=== PATIENT | male | born 1945 | race Two or more races ===

== ENCOUNTER 2018-05-06 21:30 | Inpatient (IN) | payer MEDICARE, OTHER ==
[~2018-05-06] VITALS: Ht 172.7 cm; Wt 58.1 kg
[2018-05-06] MEDS ORDERED: LORAZEPAM 2 MG/1 ML VIAL IM ONE (21:45)
[2018-05-06] MEDS ORDERED: OLANZAPINE 10 MG VIAL IM ONE ×2 (21:45→21:48)
[2018-05-06] MEDS ORDERED: diphenhydrAMINE 50 MG/1 ML VIAL IM ONE (21:45)
[2018-05-06] MEDS ORDERED: diphenhydrAMINE 50 MG/1 ML VIAL ONE (21:48)
[2018-05-06] MEDS ORDERED: LORAZEPAM 2 MG/1 ML VIAL ONE (21:49)
[2018-05-06 21:51] LABS: BASOPHILS % (AUTO) 0.2 % (0.0-2.0); EOSINOPHILS # (AUTO) 0.1 K/uL (0.0-0.7); EOSINOPHILS % (AUTO) 0.7 % (0.0-7.0); HEMATOCRIT 40.5 % (36.7-47.1); HEMOGLOBIN 13.2 g/dL (12.5-16.3); LYMPHOCYTES # (AUTO) 1.2 K/uL (20.0-40.0); LYMPHOCYTES % (AUTO) 8.4 % (20.5-51.5); MEAN CORPUSCULAR HEMOGLOBIN 30.3 uug (23.8-33.4); MEAN CORPUSCULAR HGB CONC 33 g/dL (32.5-36.3); MEAN CORPUSCULAR VOLUME 93.2 fL (73.0-96.2); MONOCYTES # (AUTO) 0.8 K/uL (2.0-10.0); MONOCYTES % (AUTO) 6.1 % (0.0-11.0); NEUTROPHILS # (AUTO) 11.6 K/uL (1.8-8.9); NEUTROPHILS % (AUTO) 84.6 % (38.5-71.5); PLATELET COUNT (AUTO) 219 K/uL (152-348); RED BLOOD CELL COUNT(AUTO) 4.34 MIL/uL (4.06-5.63); WHITE BLOOD COUNT (AUTO) 13.7 K/uL (3.6-10.2)
[2018-05-06 22:00] LABS: CARBON DIOXIDE 24 mmol/L (21-32); CHLORIDE 104 mmol/L (98-107); CREATININE 1.5 mg/dL (0.6-1.3); GLUCOSE 97 mg/dL (74-106); UREA NITROGEN, BLOOD 28 mg/dL (7-18)
[2018-05-06 22:05] LABS: ALANINE AMINOTRANSFERASE 37 U/L (16-63); ALKALINE PHOSPHATASE 128 U/L (50-136); ASPARTATE AMINOTRANSFERASE 27 U/L (15-37); BILIRUBIN,DIRECT 0.1 mg/dL (0.0-0.2); BILIRUBIN,TOTAL 0.3 mg/dL (0.2-1.0); TOTAL PROTEIN, SERUM 7.3 g/dL (6.4-8.2)
[2018-05-06 22:06] LABS: ACETAMINOPHEN < 2.0 ug/mL (10-30)
[2018-05-06 22:09] LABS: ETHANOL < 3 MG/DL (0-0)
--- NOTE | 2018-05-06 22:31 | NUR ---
CAITIE (PT'S FAMILY FRIEND) [phone]
[2018-05-06] MEDS ORDERED: METO25TA6 PO (22:32)
[2018-05-06] MEDS ORDERED: ACET325T53 PO (22:32)
[2018-05-06] MEDS ORDERED: DOCU100C36 PO (22:32)
[2018-05-06] MEDS ORDERED: APIX5TAB PO (22:32)
[2018-05-06] MEDS ORDERED: LEVO50TA8 PO (22:32)
[2018-05-06] MEDS ORDERED: MULT1TAB73 PO (22:32)
[2018-05-06] MEDS ORDERED: ASPI-605 PO (22:32)
[2018-05-06] MEDS ORDERED: QUET50TA PO ×2 (22:32)
[2018-05-06] MEDS ORDERED: MAGN400O6 PO (22:32)
[2018-05-06] MEDS ORDERED: LORA-258 PO (22:32)
[2018-05-06] MEDS ORDERED: ATOR20TA PO (22:32)
[2018-05-06] MEDS ORDERED: IV NS 1000 ML 1,000 ML IV ONE (22:45)
--- NOTE | 2018-05-06 23:04 | NUR ---
PAGED EPIC PER RAS GOODMAN. AWAITING CALL BACK FROM BRENDA ARMIREZ NP.
--- NOTE | 2018-05-06 23:14 | NUR ---
DR. DURAN TALKING TO BRENDA RAMIREZ NP.
[2018-05-06] MEDS ORDERED: CEFTRIAXONE 1 G VIAL IM SCH (23:15)
[2018-05-06] MEDS ORDERED: LIDOCAINE HCL 1% 20 ML VIAL ONE (23:15)
[2018-05-06] MEDS ORDERED: CEFTRIAXONE 1 G VIAL ONE (23:16)
--- NOTE | 2018-05-06 23:18 | NUR ---
Pt. admitted to [facility] , under care of Dr. HARDIN/BRENDA RAMIREZ ([facility]) Diagnosis: PSYCHOSIS Belongs List completed. MRSA swab done. Report given to Cynthia CHAMBERLAIN
[2018-05-06] MEDS ORDERED: ACETAMINOPHEN 325 MG TABLET PO PRN ×2 (23:45)
[2018-05-07] MEDS ORDERED: MAG HYDROX/AL HYDROX/SIMETH 30 ML LIQUID UDC PO PRN (00:15)
[2018-05-07] MEDS ORDERED: MAGNESIUM HYDROXIDE 30 ML LIQUID UDC PO PRN (00:15)
[2018-05-07] MEDS ORDERED: TEMAZEPAM 7.5 MG CAPSULE PO PRN (00:15)
--- NOTE | 2018-05-07 00:53 | NUR ---
ADMITTED A 72 YEAR OLD MALE GREEK FROM ER AT APPROX. 23;30 UNDER THE CARE OF DR. HARDIN AND PHYSICIAN JAMES. HIS ADMISSION IS 5150 FOR GD AND THE HOLD STARTED AT 05/06/18 @ 18;15. PRIOR TO HIS ADMISSION HE WAS ATTEMPTING TO ELOPE THROUGH OTHER PATIENTS ROOM AND BROKE A WINDOW WITH HIS FIST. HE IS UNABLE TO DESCRIBE A PLAN OF SELF CARE. IM ZYPREXA , BENADRYL, AND ATIVAN HAD BEEN GIVEN AT THE ER FOR AGITATION AND BEING COMBATIVE. ON THE UNIT HE COULD NOT BE INTERVIEWED SINCE HE WAS SEDATED FROM ER. HE IS SAID TO SPEAK FARSI WITH MINIMAL WOLOF. HIS V/S WERE FF. BP 110/85,T.97. 4 P.60, AN 02 SAT 90%. HE ALSO HAS A PACEMAKER INSERTION ON THE RIGHT SIDE OF CHEST AND SOME ABRASION ON LEFT LEG.
--- NOTE | 2018-05-07 06:59 | NUR ---
NEWLY ADMITTED PATIENT. SLEPT WELL FOR APPROX 6 HRS GOT UP AND WAS AGITATED AND CONFUSED. HAS HAD A SHOWER AND WILL CONTINUE TO MONITOR.
[2018-05-07 07:30] VITALS: BP 122/79
[2018-05-07] MEDS ORDERED: Medication Not On Formulary EA (Multivitamins (Multivitamin) 1 EACH) PO SCH (09:00)
[2018-05-07] MEDS: ASPIRIN EC 81 MG TABLET.DR PO SCH (09:01)
[2018-05-07] MEDS: MULTIVITAMINS,THERAPEUTIC TABLET PO SCH (09:02)
[2018-05-07] MEDS: METOPROLOL TARTRATE 25 MG TABLET PO SCH ×2 (09:02→20:10)
[2018-05-07] MEDS: SULFAMETH/TRIMETH 800/160 MG TABLET PO SCH ×2 (09:02→20:10)
[2018-05-07] MEDS: DOCUSATE SODIUM 100 MG CAPSULE PO SCH (09:02)
[2018-05-07] MEDS: LEVOTHYROXINE SODIUM 50 MCG TABLET PO SCH (09:02)
[2018-05-07] MEDS: APIXABAN 5 MG TABLET PO SCH ×2 (09:44→17:16)
[2018-05-07] MEDS: LORAZEPAM 0.5 MG TABLET PO PRN ×2 (09:47→18:35)
--- NOTE | 2018-05-07 14:32 | NUR ---
Initial Discharge Instructions: Patient has been residing at [facility] since April 28, 2018 [[address] [place] [address]; [place] Spoke with patient's , Kaylyn ([phone]) and patient's friend, Rolanda ([phone]) who report they would like the patient to return to the SNF when ready for discharge. SW will continue to collaborate with pt, family, and MD regarding most appropriate discharge disposition for the patient. SW will form a safe and proper discharge plan.
[2018-05-07 15:07] VITALS: BP 106/53
[2018-05-07] MEDS: BENZTROPINE MESYLATE 0.5 MG TABLET PO SCH (17:16)
[2018-05-07] MEDS: risperiDONE-M 0.5 MG TAB.RAPDIS PO SCH (17:16)
[2018-05-07] MEDS ORDERED: OLANZAPINE 10 MG VIAL IM ONE (19:30)
--- NOTE | 2018-05-07 19:35 | NUR ---
PATIENT WAS NOTED PACING THE HALLWAY, STANDING BY THE DOUBLE DOOR IN MAIN HALLWAY, SHAKING AND TRYING TO OPEN THE THE DOUBLE DOOR, ATTEMPTING TO LEAVE FACILITY (AWOL), YELLING, AND SCREAMING. PATIENT CONTINUE ON 1:1 SUPERVISION FOR AWOL RISK, MULTIPLE REDIRECTION GIVEN; HOWEVER, INEFFECTIVE. DR. HARDIN WAS NOTIFY AND NEW ORDER OBTAINED TO ADMINISTER ZYPREXA 5MG IM STAT ONE TIME ORDER. ORDER NOTED, AWAITING FOR PHARMACY VERIFICATION. WILL CONTINUE TO MONITOR.
--- NOTE | 2018-05-07 20:00 | NUR ---
remains agitated, even after IM injection. was intrusive with peers and staff. difficult to redirect. continues to yell intermittently. assisted to the bathroom. fluids given. gait appears slightly unsteady; currently up in danial chair, for safety. sitter remains at side, at all times.
[2018-05-07] MEDS: ATORVASTATIN 20 MG TABLET PO SCH (20:09)
[2018-05-07 20:59] VITALS: BP 143/90
[2018-05-07] MEDS ORDERED: MAGNESIUM HYDROXIDE 30 ML LIQUID UDC PO SCH (21:00)
[2018-05-07] MEDS ORDERED: HALOPERIDOL LACTATE 5 MG/1 ML VIAL IM ONE (21:15)
[2018-05-07] MEDS ORDERED: diphenhydrAMINE 50 MG/1 ML VIAL IM ONE (21:30)
[2018-05-07] MEDS ORDERED: LORAZEPAM 2 MG/1 ML VIAL IM ONE (21:30)
--- NOTE | 2018-05-07 21:55 | NUR ---
PATIENT CONTINUER PACING THE HALLWAY, CONTINUE STANDING BY THE DOUBLE DOOR IN MAIN HALLWAY, SHAKING THE DOOR AND TRYING TO OPEN THE THE DOUBLE DOOR, CONTINUE ATTEMPTING TO LEAVE FACILITY (AWOL), YELLING, AND SCREAMING. PT IS UNABLE TO BE REDIRECTED. PATIENT CONTINUE ON 1:1 SUPERVISION, MULTIPLE REDIRECTION GIVEN; HOWEVER, INEFFECTIVE. DR. HARDIN WAS NOTIFY AND NEW ORDER OBTAINED TO ADMINISTER HALDOL 5MG IM, BENADRYL 25MG IM AND ATIVAN 1MG IM STAT ONE TIME ORDER. ORDER NOTED, AWAITING FOR PHARMACY VERIFICATION. WILL CONTINUE TO MONITOR CLOSELY.
--- NOTE | 2018-05-07 22:30 | NUR ---
remains agitated, even after second injection. remains in danial chair, for safety.
[2018-05-07 22:44] LABS: *BILIRUBIN,URIN NEGATIVE (NEGATIVE); *BLOOD, URINE NEGATIVE (NEGATIVE); *CLARITY,URINE CLEAR (CLEAR); *COLOR,URINE YELLOW (YELLOW); *KETONES,URINE NEGATIVE (NEGATIVE); *PROTEIN,URINE NEGATIVE (NEGATIVE); *UROBILINOGEN,URINE 0.2 E.U./dl (NORMAL); LEUKOCYTE ESTERASE ,URINE NEGATIVE (NEGATIVE); NITRITE, URINE NEGATIVE (NEGATIVE); UGLUCOSE NEGATIVE (NEGATIVE)
[2018-05-07 22:51] LABS: MUCUS,URINE FEW /LPF (0-FEW); RBC,URINE 0-3 /HPF (0-3); SQUAMOUS EPITHELIAL CELL,UR FEW /HPF (NONE SEEN); WBC,URINE 0-3 /HPF (0-3)
[2018-05-07 22:56] LABS: *AMPHETAMINE, URINE NEGATIVE (NEGATIVE); *BARBITURATE, URINE NEGATIVE (NEGATIVE); *CANNABINOID, URINE NEGATIVE (NEGATIVE); *COCCAINE, URINE NEGATIVE (NEGATIVE); *OPIATE, URINE NEGATIVE (NEGATIVE); *PHENCYCLIDINE SCREEN,URINE NEGATIVE (NEGATIVE)
[2018-05-07 23:03] LABS: *CREATININE,URINE 93.9 mg/dL (30-125); *URINE TOTAL PROTEIN RANDOM 15.9 mg/dL (<150/24HR)
--- NOTE | 2018-05-08 02:25 | NUR ---
remains restless, and agitated. sitter remains at side. will continue to monitor closely.
--- NOTE | 2018-05-08 06:00 | NUR ---
slept 1 hour, total. remains restless and labile. currently pacing ther hallway, talking to self. sitter remains at side. will continue to monitor closely.
[2018-05-08] MEDS: LEVOTHYROXINE SODIUM 50 MCG TABLET PO SCH (06:16)
[2018-05-08 07:30] VITALS: BP 149/88
[2018-05-08] MEDS ORDERED: LORAZEPAM 2 MG/1 ML VIAL IM ONE ×2 (07:30→21:20)
[2018-05-08] MEDS ORDERED: HALOPERIDOL LACTATE 5 MG/1 ML VIAL IM ONE ×2 (07:30→21:20)
[2018-05-08] MEDS ORDERED: BENZTROPINE MESYLATE 2 MG/2 ML AMPUL IM ONE ×2 (07:45→21:20)
[2018-05-08] MEDS: risperiDONE-M 0.5 MG TAB.RAPDIS PO SCH ×4 (08:00→18:00)
[2018-05-08] MEDS: DOCUSATE SODIUM 100 MG CAPSULE PO SCH ×2 (08:41→18:09)
[2018-05-08] MEDS: BENZTROPINE MESYLATE 0.5 MG TABLET PO SCH (08:41)
[2018-05-08] MEDS: ASPIRIN EC 81 MG TABLET.DR PO SCH (08:41)
[2018-05-08] MEDS: SULFAMETH/TRIMETH 800/160 MG TABLET PO SCH ×2 (08:42→20:33)
[2018-05-08] MEDS: METOPROLOL TARTRATE 25 MG TABLET PO SCH ×2 (08:42→20:34)
[2018-05-08] MEDS: APIXABAN 5 MG TABLET PO SCH ×4 (08:42→18:04)
[2018-05-08] MEDS: SERTRALINE HCL 50 MG TABLET PO SCH (08:43)
[2018-05-08] MEDS: MULTIVITAMINS,THERAPEUTIC TABLET PO SCH (08:43)
[2018-05-08] MEDS ORDERED: BENZTROPINE MESYLATE 2 MG/2 ML AMPUL IM SCH (09:00)
[2018-05-08] MEDS ORDERED: TEMAZEPAM 7.5 MG CAPSULE PO PRN (11:00)
[2018-05-08] MEDS: BENZTROPINE MESYLATE 1 MG TABLET PO SCH ×4 (13:00→18:04)
[2018-05-08] MEDS: LORAZEPAM 0.5 MG TABLET PO SCH ×3 (13:00→18:00)
[2018-05-08] MEDS: VALPROIC ACID 250 MG/5 ML LIQUID UDC PO SCH ×4 (13:00→18:04)
[2018-05-08] MEDS ORDERED: BENZTROPINE MESYLATE 0.5 MG TABLET PO SCH (13:00)
[2018-05-08 15:51] VITALS: BP 105/57
[2018-05-08] MEDS ORDERED: BISACODYL 10 MG SUPP.RECT RC PRN (18:30)
[2018-05-08] MEDS: ATORVASTATIN 20 MG TABLET PO SCH (20:33)
[2018-05-08] MEDS: TEMAZEPAM 15 MG CAPSULE PO PRN (20:33)
[2018-05-08 21:39] VITALS: BP 140/69
--- NOTE | 2018-05-08 23:00 | NUR ---
IM Administration Note: Pt became increasingly agitated throughout the shift, defecated on himself, and was resistant to let staff clean him. Pt had to be held by 2 staff for less than 5 minutes in order to change and clean him. Pt was placed in a danial chair for safety, but then slid out from underneath, and grabbed another chair, attempting to throw it at his sitter. Pt postured aggressively toward staff and attempted to strike out. Pt refused PO medication and was unable to accept verbal redirection and de-escalation attempts. Dr Garsia notifies of Pt's behavior and Haldol 5mg, Ativan 1mg, and Cogentin 1mg IM ordered. Security called and present with 3 other staff for IM administration to (B) deltoids. Hands placed on patient for 1 minute for safety during medication administration. VS 140/36, HR 82, O2 sat 97%RA, in no acute physical distress. Pt offered snack and water. Pt now resting comfortably in bed with 1:1 present. All needs attended to, will continue to monitor.
[2018-05-09] MEDS: LORAZEPAM 1 MG TABLET PO PRN ×3 (03:38→21:16)
--- NOTE | 2018-05-09 03:38 | NUR ---
pt slept a few hours, before he became agitated, and climbed out of bed. he was placed in the danial chair, for safety, after he defecated on the floor. he has been escalating over the last hour. attempting to climb out of the chair, attempting to strike staff when redirected. PRN po ativan, was given with much encouragement. sitter remains at side. will continue to monitor closely.
--- NOTE | 2018-05-09 04:30 | NUR ---
appears calmer, now. remains up in danial chair. sitter at side.
--- NOTE | 2018-05-09 06:00 | NUR ---
slept 3 hours total. remains calm. no distress noted.
[2018-05-09] MEDS: LEVOTHYROXINE SODIUM 50 MCG TABLET PO SCH (06:33)
[2018-05-09 07:30] VITALS: BP 106/42
--- NOTE | 2018-05-09 07:30 | NUR ---
oob to chair with sitter, prn getting agitated but manageable. able to be feed with breakfast in dining room. appetite fair.
[2018-05-09] MEDS: DOCUSATE SODIUM 100 MG CAPSULE PO SCH (08:04)
[2018-05-09] MEDS: ASPIRIN EC 81 MG TABLET.DR PO SCH (08:04)
[2018-05-09] MEDS: LORAZEPAM 0.5 MG TABLET PO SCH ×3 (08:04→18:32)
[2018-05-09] MEDS: MULTIVITAMINS,THERAPEUTIC TABLET PO SCH (08:04)
[2018-05-09] MEDS: SULFAMETH/TRIMETH 800/160 MG TABLET PO SCH (08:04)
[2018-05-09] MEDS: risperiDONE-M 0.5 MG TAB.RAPDIS PO SCH ×3 (08:05→18:34)
[2018-05-09] MEDS: SERTRALINE HCL 50 MG TABLET PO SCH (08:05)
[2018-05-09] MEDS: METOPROLOL TARTRATE 25 MG TABLET PO SCH ×2 (08:10→21:15)
[2018-05-09] MEDS: VALPROIC ACID 250 MG/5 ML LIQUID UDC PO SCH ×3 (08:19→16:44)
[2018-05-09] MEDS: BENZTROPINE MESYLATE 1 MG TABLET PO SCH ×3 (08:20→16:45)
--- NOTE | 2018-05-09 08:21 | NUR ---
med given as ordered for elvia.
--- NOTE | 2018-05-09 09:39 | NUR ---
med x 1 for increased anxiety
--- NOTE | 2018-05-09 11:00 | NUR ---
patient sleeping comfortably after ativan given. no distress noted. continued sitter at bedside
--- NOTE | 2018-05-09 13:17 | NUR ---
called, appreciative of care. patient awake now., med given as ordered
[2018-05-09 13:51] LABS: BASOPHILS % (AUTO) 0.5 % (0.0-2.0); EOSINOPHILS # (AUTO) 0.1 K/uL (0.0-0.7); EOSINOPHILS % (AUTO) 0.9 % (0.0-7.0); HEMOGLOBIN 12.3 g/dL (12.5-16.3); LYMPHOCYTES # (AUTO) 1.4 K/uL (20.0-40.0); LYMPHOCYTES % (AUTO) 15.2 % (20.5-51.5); MEAN CORPUSCULAR HEMOGLOBIN 30.9 uug (23.8-33.4); MEAN CORPUSCULAR HGB CONC 33 g/dL (32.5-36.3); MEAN CORPUSCULAR VOLUME 92.9 fL (73.0-96.2); MONOCYTES # (AUTO) 0.6 K/uL (2.0-10.0); MONOCYTES % (AUTO) 7.2 % (0.0-11.0); NEUTROPHILS # (AUTO) 6.8 K/uL (1.8-8.9); NEUTROPHILS % (AUTO) 76.2 % (38.5-71.5); PLATELET COUNT (AUTO) 187 K/uL (152-348); RED BLOOD CELL COUNT(AUTO) 3.99 MIL/uL (4.06-5.63)
[2018-05-09 13:58] LABS: ALANINE AMINOTRANSFERASE 50 U/L (16-63); ALKALINE PHOSPHATASE 116 U/L (50-136); ASPARTATE AMINOTRANSFERASE 100 U/L (15-37); BILIRUBIN,TOTAL 0.6 mg/dL (0.2-1.0); CARBON DIOXIDE 29 mmol/L (21-32); CHLORIDE 104 mmol/L (98-107); CREATININE 1.4 mg/dL (0.6-1.3); GLUCOSE 89 mg/dL (74-106); MAGNESIUM 1.9 mg/dL (1.8-2.4); PHOSPHOROUS 3.7 mg/dL (2.5-4.9); TOTAL PROTEIN, SERUM 6.7 g/dL (6.4-8.2); UREA NITROGEN, BLOOD 26 mg/dL (7-18)
[2018-05-09 15:25] VITALS: BP 101/63
[2018-05-09] MEDS: APIXABAN 5 MG TABLET PO SCH (16:46)
[2018-05-09 20:11] VITALS: BP 121/67
[2018-05-09] MEDS: ATORVASTATIN 20 MG TABLET PO SCH (21:15)
--- NOTE | 2018-05-09 21:15 | NUR ---
lYING IN ELENA CHAIR 1-1 AT PT SIDE. PT continues to be confused and agiatated. Given hs meds with ativan.
--- NOTE | 2018-05-09 22:50 | NUR ---
Less Agiatated remains confused and restless. 1-1 remains at his side in Shilpa Chair.
--- NOTE | 2018-05-10 03:24 | NUR ---
Remains awake and restless refusing po meds. 1-1 at his side.
--- NOTE | 2018-05-10 05:51 | NUR ---
Awake remains Lying in Shilpa Chair 1-1 @ bedside. Refusing po meds. No sleep throughout the shift.
[2018-05-10] MEDS: LEVOTHYROXINE SODIUM 50 MCG TABLET PO SCH (06:18)
[2018-05-10 06:49] LABS: BASOPHILS # (AUTO) 0.1 K/uL (0.0-8.0); BASOPHILS % (AUTO) 0.6 % (0.0-2.0); EOSINOPHILS # (AUTO) 0.1 K/uL (0.0-0.7); EOSINOPHILS % (AUTO) 0.7 % (0.0-7.0); HEMATOCRIT 39.8 % (36.7-47.1); HEMOGLOBIN 13.4 g/dL (12.5-16.3); LYMPHOCYTES # (AUTO) 1.1 K/uL (20.0-40.0); LYMPHOCYTES % (AUTO) 10.8 % (20.5-51.5); MEAN CORPUSCULAR HEMOGLOBIN 31.8 uug (23.8-33.4); MEAN CORPUSCULAR HGB CONC 34 g/dL (32.5-36.3); MEAN CORPUSCULAR VOLUME 94.4 fL (73.0-96.2); MONOCYTES # (AUTO) 0.8 K/uL (2.0-10.0); MONOCYTES % (AUTO) 8.1 % (0.0-11.0); NEUTROPHILS # (AUTO) 7.8 K/uL (1.8-8.9); NEUTROPHILS % (AUTO) 79.8 % (38.5-71.5); PLATELET COUNT (AUTO) 231 K/uL (152-348); RED BLOOD CELL COUNT(AUTO) 4.22 MIL/uL (4.06-5.63); WHITE BLOOD COUNT (AUTO) 9.8 K/uL (3.6-10.2)
[2018-05-10 07:08] LABS: CARBON DIOXIDE 29 mmol/L (21-32); CHLORIDE 102 mmol/L (98-107); CREATININE 1.6 mg/dL (0.6-1.3); GLUCOSE 109 mg/dL (74-106); POTASSIUM 4.1 mmol/L (3.5-5.1); UREA NITROGEN, BLOOD 24 mg/dL (7-18)
[2018-05-10 07:30] VITALS: BP 135/76
--- NOTE | 2018-05-10 07:30 | NUR ---
Rec'd pt in bed asleep. Pt with 1:1 sitter at bedside for safety secondary pt is high risk for falls due to severely impaired cognitive status. Pt on 14 day hold up 05/23 for GD. Pt on observation for exit seeking and breaking window at his previous facility. Pt still with behavior of exit seeking, noted trying to push doors open in hallway. Still with confusion. All safety precautions in place at this time. Will monitor.
[2018-05-10] MEDS: VALPROIC ACID 250 MG/5 ML LIQUID UDC PO SCH ×4 (08:04→17:00)
[2018-05-10] MEDS: LORAZEPAM 0.5 MG TABLET PO SCH ×4 (08:04→18:00)
[2018-05-10] MEDS: ASPIRIN EC 81 MG TABLET.DR PO SCH (08:04)
[2018-05-10] MEDS: METOPROLOL TARTRATE 25 MG TABLET PO SCH ×2 (08:04→21:43)
[2018-05-10] MEDS: SERTRALINE HCL 50 MG TABLET PO SCH (08:04)
[2018-05-10] MEDS: MULTIVITAMINS,THERAPEUTIC TABLET PO SCH (08:04)
[2018-05-10] MEDS: risperiDONE-M 0.5 MG TAB.RAPDIS PO SCH ×4 (08:05→18:00)
[2018-05-10] MEDS: DOCUSATE SODIUM 100 MG CAPSULE PO SCH (08:05)
[2018-05-10] MEDS: BENZTROPINE MESYLATE 1 MG TABLET PO SCH ×4 (08:05→17:59)
[2018-05-10] MEDS: APIXABAN 5 MG TABLET PO SCH ×3 (09:59→17:59)
[2018-05-10] MEDS ORDERED: IBUPROFEN 400 MG TABLET PO PRN (18:15)
--- NOTE | 2018-05-10 18:35 | NUR ---
Noted pt with swelling and skin discoloration to left ankle. Pt denies pain to site. Pt ambulating all day in the hallway without difficulty noted. No facial grimacing or s/s of discomfort to left foot when putting pressure on it while ambulating. Skin intact. No recent injury to site. Pt seen and examined by Vannesa Coates NP with new order for x-ray to left ankle today and labs in am. Dtr at bedside and aware.
[2018-05-10 20:36] VITALS: BP 143/57
[2018-05-10] MEDS: ATORVASTATIN 20 MG TABLET PO SCH (21:43)
[2018-05-10] MEDS: TEMAZEPAM 15 MG CAPSULE PO PRN (21:44)
--- NOTE | 2018-05-10 23:17 | NUR ---
Spit bedtime meds on the floor. 2nd tab of PRN Restoril taken from pyxis and administered per MD order; pt took it this time. Asleep at this time with 1:1 at bedside. No s/s of distress noted.
--- NOTE | 2018-05-11 06:10 | NUR ---
Refused 7AM meds
[2018-05-11] MEDS: LEVOTHYROXINE SODIUM 50 MCG TABLET PO SCH (06:14)
[2018-05-11 06:37] LABS: BASOPHILS % (AUTO) 0.5 % (0.0-2.0); EOSINOPHILS # (AUTO) 0.2 K/uL (0.0-0.7); EOSINOPHILS % (AUTO) 2.3 % (0.0-7.0); HEMATOCRIT 38.5 % (36.7-47.1); HEMOGLOBIN 12.9 g/dL (12.5-16.3); LYMPHOCYTES # (AUTO) 1.7 K/uL (20.0-40.0); LYMPHOCYTES % (AUTO) 20.1 % (20.5-51.5); MEAN CORPUSCULAR HEMOGLOBIN 31.6 uug (23.8-33.4); MEAN CORPUSCULAR HGB CONC 33 g/dL (32.5-36.3); MEAN CORPUSCULAR VOLUME 94.5 fL (73.0-96.2); MONOCYTES # (AUTO) 0.9 K/uL (2.0-10.0); MONOCYTES % (AUTO) 10.5 % (0.0-11.0); NEUTROPHILS # (AUTO) 5.7 K/uL (1.8-8.9); NEUTROPHILS % (AUTO) 66.6 % (38.5-71.5); PLATELET COUNT (AUTO) 217 K/uL (152-348); RED BLOOD CELL COUNT(AUTO) 4.07 MIL/uL (4.06-5.63); WHITE BLOOD COUNT (AUTO) 8.6 K/uL (3.6-10.2)
[2018-05-11 06:44] LABS: CARBON DIOXIDE 25 mmol/L (21-32); CHLORIDE 106 mmol/L (98-107); CREATININE 1.5 mg/dL (0.6-1.3); GLUCOSE 87 mg/dL (74-106); POTASSIUM 4.3 mmol/L (3.5-5.1); UREA NITROGEN, BLOOD 28 mg/dL (7-18)
[2018-05-11 07:30] VITALS: BP 120/66
[2018-05-11] MEDS: LORAZEPAM 1 MG TABLET PO PRN ×2 (07:37→08:17)
[2018-05-11] MEDS: LORAZEPAM 0.5 MG TABLET PO SCH ×3 (08:00→18:00)
[2018-05-11] MEDS: risperiDONE-M 0.5 MG TAB.RAPDIS PO SCH ×3 (08:00→18:00)
[2018-05-11] MEDS: VALPROIC ACID 250 MG/5 ML LIQUID UDC PO SCH ×3 (08:00→16:45)
--- NOTE | 2018-05-11 08:10 | NUR ---
GPS: Nursing Notes: Severe Agitation: patient is awake and responding to his name, impaired judgment, confused, disorganized, overly disruptive by constantly shouting, screaming, wandering around the unit, getting into other patient's room, unable to be redirected, restless behavior, refusing his medications, poor anger management, pushing staff away, paged Dr. Garsia, continue to monitor for safety, continue with treatment plan.
[2018-05-11] MEDS ORDERED: HALOPERIDOL LACTATE 5 MG/1 ML VIAL IM ONE (08:15)
[2018-05-11] MEDS ORDERED: diphenhydrAMINE 50 MG/1 ML VIAL IM ONE (08:15)
[2018-05-11] MEDS ORDERED: LORAZEPAM 2 MG/1 ML VIAL IM ONE (08:15)
--- NOTE | 2018-05-11 08:30 | NUR ---
GPS: Nursing Notes: Chemical Restraint: patient continue to be labile, unpredictable behavior, resistant with nursing care, poor impulse control, poor anger management, overly disruptive by constantly shouting, impaired judgment, restless behavior, unable to follow staff directions, pushing staff away, Dr. Garsia called and ordered: Haldol 10mg IM, Ativan 2mg IM and Benadryl 25mg IM X1 STAT, B/P=120/66, R=18, continue with treatment plan.
[2018-05-11] MEDS: BENZTROPINE MESYLATE 1 MG TABLET PO SCH ×3 (08:31→16:45)
[2018-05-11] MEDS: METOPROLOL TARTRATE 25 MG TABLET PO SCH ×2 (08:31→21:00)
[2018-05-11] MEDS: DOCUSATE SODIUM 100 MG CAPSULE PO SCH (08:31)
[2018-05-11] MEDS: APIXABAN 5 MG TABLET PO SCH ×3 (08:31→16:46)
[2018-05-11] MEDS: ASPIRIN EC 81 MG TABLET.DR PO SCH (08:31)
[2018-05-11] MEDS: MULTIVITAMINS,THERAPEUTIC TABLET PO SCH (08:32)
[2018-05-11] MEDS: SERTRALINE HCL 50 MG TABLET PO SCH ×2 (08:32→13:30)
--- NOTE | 2018-05-11 09:00 | NUR ---
GPS: Nursing Notes: Reassessment of Chemical Restraint: Patient is calmed, confused, disoriented, cooperative with nursing care, medication IM was effective, R=18, continue with 1:1 sitter for safety, continue with treatment plan.
--- NOTE | 2018-05-11 14:00 | NUR ---
Firearms Report: Heeler completed and submitted [employer] Firearms Report on 05/11/18 for [address] Disability certification.
[2018-05-11 17:21] VITALS: BP 102/60
[2018-05-11 20:04] VITALS: BP 103/54
[2018-05-11] MEDS: ATORVASTATIN 20 MG TABLET PO SCH (21:00)
--- NOTE | 2018-05-12 02:35 | NUR ---
Pt BECOMING RESTLESS AND ANXIOUS IN BED, PLACED IN ELENA-CHAIR WITH SITTER AT SIDE AT ALL TIMES. Pt UNABLE TO SLEEP, CONSTANTLY RAMBLING AND MAKING MUMBLING NOISES, ATTEMPTED TO ADMINISTER ATIVAN 1 MG PO PRN FOR RESTLESSNESS/AGITATION, Pt SPIT OUT ATIVAN DURING ADMINISTRATION. NURSE WASTED MEDICATION WITH ANOTHER NURSE WITNESS. Pt IS STILL RESTLESS IN ELENA-CHAIR, UNABLE TO SLEEP. NO AGGRESSIVE BEHAVIOR NOTED. WILL CONTINUE TO MONITOR Pt BEHAVIOR CLOSELY THROUGHOUT SHIFT. IF Pt BEHAVIOR WORSENS AND BECOMES DIFFICULT TO HANDLE BY NURSING STAFF, WILL NOTIFY ON-CALL PSYCHIATRIST FOR ANY FURTHER ORDERS.
[2018-05-12] MEDS: LEVOTHYROXINE SODIUM 50 MCG TABLET PO SCH (06:11)
[2018-05-12] MEDS: LORAZEPAM 1 MG TABLET PO PRN ×2 (07:28→08:16)
[2018-05-12 07:30] VITALS: BP 126/82
[2018-05-12] MEDS: LORAZEPAM 0.5 MG TABLET PO SCH ×3 (08:00→17:15)
[2018-05-12] MEDS: VALPROIC ACID 250 MG/5 ML LIQUID UDC PO SCH ×3 (08:00→16:00)
[2018-05-12] MEDS: risperiDONE-M 0.5 MG TAB.RAPDIS PO SCH ×3 (08:00→17:15)
[2018-05-12] MEDS: BENZTROPINE MESYLATE 1 MG TABLET PO SCH ×3 (08:17→16:17)
[2018-05-12] MEDS: DOCUSATE SODIUM 100 MG CAPSULE PO SCH (08:17)
[2018-05-12] MEDS: ASPIRIN EC 81 MG TABLET.DR PO SCH (08:18)
[2018-05-12] MEDS: APIXABAN 5 MG TABLET PO SCH ×2 (08:18→16:17)
[2018-05-12] MEDS: METOPROLOL TARTRATE 25 MG TABLET PO SCH ×2 (08:18→21:00)
[2018-05-12] MEDS: MULTIVITAMINS,THERAPEUTIC TABLET PO SCH (08:19)
[2018-05-12] MEDS: SERTRALINE HCL 50 MG TABLET PO SCH ×2 (08:19→12:08)
--- NOTE | 2018-05-12 08:55 | NUR ---
GPS.RN- patient anxious restless intrusive, frequently attempting to AWOL unable to be redirected, behavior escalating this morning, patient refusing medications, confused and disoriented, judgement and insight impaired, wondering into rooms and nursing stations difficult to redirect. Dr Garsia notified, chemical restraint ordered. Haldol 10mg IM once, Ativan 2mg IM once and Benadryl 25mg IM once. orders read back.
[2018-05-12] MEDS ORDERED: HALOPERIDOL LACTATE 5 MG/1 ML VIAL IM ONE (09:00)
[2018-05-12] MEDS ORDERED: diphenhydrAMINE 50 MG/1 ML VIAL IM ONE (09:00)
[2018-05-12] MEDS ORDERED: LORAZEPAM 2 MG/1 ML VIAL IM ONE (09:00)
--- NOTE | 2018-05-12 09:30 | NUR ---
GPS/RN- patient calmer at this time, sitting up in gerichair with sitter at side for safety, chemical restraint effective continue to monitor no distress noted
[2018-05-12 15:52] VITALS: BP 111/67
--- NOTE | 2018-05-12 16:24 | NUR ---
GPS/RN-SITTER JUSTIFICATION patient confused disoriented, incoherently, frequently wonders, anxious and restless today, pushing on exit doors constantly,impaired judgement and insight, continue with sitter.
--- NOTE | 2018-05-12 16:49 | NUR ---
GPS/RN- Preeti smith faxed to court. court closed, nursing to follow up tomorrow to verify fax received.
--- NOTE | 2018-05-12 19:30 | NUR ---
RECEIVED PATIENT IN THE HALLWAY, HE CONTINUE ON 1:1 SUPERVISION FOR AWOL RISK. HE IS NOTED A/O X 1. HE DOES NOT SPEAK KU[place] (ARMINIAN ONLY). PATIENT NOTED PACING THE HALLWAY, HYPERVERBAL IN NO DISTRESS. HE IS ABLE TO AMBULATE WITH STEADY GAIT. PT NOTED WITH BLUNTED AFFECT, LOW MOOD, CONFUSED UNABLE TO MAKE EYE CONTACT. SAFETY WAS EMPHASIS, WILL CONTINUE TO MONITOR.
[2018-05-12 20:49] VITALS: BP 118/72
[2018-05-12] MEDS: ATORVASTATIN 20 MG TABLET PO SCH (21:00)
--- NOTE | 2018-05-12 21:00 | NUR ---
PATIENT NOTED STANDING BY THE DOUBLE DOORS IN THE MAIN HALLWAY, THEN PACING THE HALLWAY, BACK AND FORT, HYPERVERBAL. ATIVAN 1MG PO PRN WAS OFFERED; HOWEVER, PATIENT SPITTED IT OUT. HE ALSO REFUSED HIS QHS MEDICATION, LIPITOR AND METOPROLOL. MULTIPLE REDIRECTION GIVEN; HOWEVER, INEFFECTIVE. B/P 118/72MMHG. V/S STABLE AT THIS TIME. WILL CONTINUE TO MONITOR.
--- NOTE | 2018-05-12 21:20 | NUR ---
PATIENT REFUSED CT SCAN OF THE HEAD R/O AMS PER DR HARDIN. MULTIPLE REDIRECTION GIVEN; HOWEVER, HE REFUSED TO SIT ON THE WHEELCHAIR AND BE TRANSPORTED TO THE DEPARTMENT. WILL CONTINUE TO MONITOR.
[2018-05-12] MEDS: TEMAZEPAM 15 MG CAPSULE PO PRN (21:31)
--- NOTE | 2018-05-12 21:35 | NUR ---
PATIENT CONTINUE HYPERVERBAL, PACING THE HALLWAY. TEMAZEPAM 15MG PO PRN WAS GIVEN FOR INSOMNIA. WILL CONTINUE TO MONITOR.
--- NOTE | 2018-05-12 22:30 | NUR ---
PATIENT NOTED SLEEPING COMFORTABLE IN HIS BED. WILL CONTINUE TO MONITOR.
--- NOTE | 2018-05-13 06:46 | NUR ---
PATIENT SLEPT FOR APPROX 5.30 HRS THROUGH THE NIGHT. HE REFUSED SYNTHROID 50MCG QAM. HE WILL CONTINUE ON 1:1 SUPERVISION FOR AWOL RISK.
[2018-05-13] MEDS: LEVOTHYROXINE SODIUM 50 MCG TABLET PO SCH (06:49)
[2018-05-13 07:30] VITALS: BP 142/67
[2018-05-13] MEDS: risperiDONE-M 0.5 MG TAB.RAPDIS PO SCH ×3 (08:00→18:00)
[2018-05-13] MEDS: LORAZEPAM 0.5 MG TABLET PO SCH ×2 (08:00→13:00)
[2018-05-13] MEDS: VALPROIC ACID 250 MG/5 ML LIQUID UDC PO SCH ×3 (08:00→16:00)
[2018-05-13 08:03] LABS: CARBON DIOXIDE 32 mmol/L (21-32); CHLORIDE 109 mmol/L (98-107); CREATININE 1.4 mg/dL (0.6-1.3); GLUCOSE 97 mg/dL (74-106); POTASSIUM 4.1 mmol/L (3.5-5.1); UREA NITROGEN, BLOOD 32 mg/dL (7-18)
[2018-05-13 08:05] LABS: BASOPHILS % (AUTO) 0.7 % (0.0-2.0); EOSINOPHILS # (AUTO) 0.2 K/uL (0.0-0.7); EOSINOPHILS % (AUTO) 2.6 % (0.0-7.0); HEMATOCRIT 39.2 % (36.7-47.1); HEMOGLOBIN 12.9 g/dL (12.5-16.3); LYMPHOCYTES # (AUTO) 1.5 K/uL (20.0-40.0); LYMPHOCYTES % (AUTO) 25.5 % (20.5-51.5); MEAN CORPUSCULAR HEMOGLOBIN 31.3 uug (23.8-33.4); MEAN CORPUSCULAR HGB CONC 33 g/dL (32.5-36.3); MEAN CORPUSCULAR VOLUME 95.3 fL (73.0-96.2); MONOCYTES # (AUTO) 0.6 K/uL (2.0-10.0); NEUTROPHILS # (AUTO) 3.5 K/uL (1.8-8.9); NEUTROPHILS % (AUTO) 60.2 % (38.5-71.5); PLATELET COUNT (AUTO) 225 K/uL (152-348); RED BLOOD CELL COUNT(AUTO) 4.11 MIL/uL (4.06-5.63); WHITE BLOOD COUNT (AUTO) 5.9 K/uL (3.6-10.2)
[2018-05-13] MEDS: APIXABAN 5 MG TABLET PO SCH ×2 (09:00→17:00)
[2018-05-13] MEDS: SERTRALINE HCL 50 MG TABLET PO SCH (09:00)
[2018-05-13] MEDS: METOPROLOL TARTRATE 25 MG TABLET PO SCH ×2 (09:00→21:00)
[2018-05-13] MEDS: DOCUSATE SODIUM 100 MG CAPSULE PO SCH (09:00)
[2018-05-13] MEDS: MULTIVITAMINS,THERAPEUTIC TABLET PO SCH (09:00)
[2018-05-13] MEDS: ASPIRIN EC 81 MG TABLET.DR PO SCH (09:00)
[2018-05-13] MEDS: BENZTROPINE MESYLATE 1 MG TABLET PO SCH ×3 (09:00→17:00)
[2018-05-13 16:05] VITALS: BP 111/68
[2018-05-13] MEDS ORDERED: OLANZAPINE 10 MG VIAL IM PRN ×2 (17:30→17:45)
[2018-05-13] MEDS ORDERED: risperiDONE-M 0.5 MG TAB.RAPDIS PO SCH (18:00)
--- NOTE | 2018-05-13 19:40 | NUR ---
RECEIVED PATIENT IN THE HALLWAY, HE IS ABLE TO AMBULATE WITH STEADY GAIT. HE CONTINUE ON 1:1 SUPERVISION FOR AWOL RISK. HE IS NOTED A/O X 1. HYPERVERBAL AGITATED AND EASILY IRRITABLE. HE DOES NOT SPEAK ROMANSH (ARMINIAN SPEAKER ONLY). HE WAS ALSO NOTED PACING THE HALLWAY, HYPERVERBAL, FLIGHT OF IDEAS; HOWEVER, HE IS IN NO ACUTE DISTRESS AT THIS TIME. HE IS NOTED WITH FLAT AFFECT, LOW MOOD, CONFUSED AND UNABLE TO MAKE EYE CONTACT. ATIVAN 1MG PO PRN WAS OFFERED BUT PT REFUSED. SAFETY WAS EMPHASIS, WILL CONTINUE TO MONITOR.
[2018-05-13] MEDS: ATORVASTATIN 20 MG TABLET PO SCH (21:00)
--- NOTE | 2018-05-13 21:00 | NUR ---
PATIENT CONTINUE REFUSED ALL HUS QHS MEDICATION, INCLUDING ATIVAN 1MG PO PRN FOR ANXIETY, HE CONTINUE PACING THE HALLWAY, HYPERVERBAL AND EASILY IRRITABLE. WILL CONTINUE TO MONITOR.
--- NOTE | 2018-05-13 21:25 | NUR ---
PATIENT CONTINUE PACING THE HALLWAY, WONDERING INTO OTHER PATIENT'S ROOMS AND STANDING BY THE EXIT DOUBLE DOORS, IRRITABLE, AGITATED, ANXIOUS, HYPERVERBAL AND UNABLE TO BE REDIRECTED. DR. HARDIN WAS NOTIFY AND NEW ORDERS OBTAINED TO ADMINISTER HALDOL 5MG IM AND BENADRYL 50MG IM ONE TIME ONLY PRN FOR SEVERE AGITATION AND ANXIETY. ORDER NOTED, AWAITING FOR PHARMACY TO RECONCILE MEDICATIONS. WILL CONTINUE TO MONITOR CLOSELY.
[2018-05-13] MEDS ORDERED: diphenhydrAMINE 50 MG/1 ML VIAL IM ONE (21:30)
[2018-05-13] MEDS ORDERED: HALOPERIDOL LACTATE 5 MG/1 ML VIAL IM ONE (21:30)
--- NOTE | 2018-05-14 06:41 | NUR ---
PATIENT SLEPT FOR APPROX 1.15 HRS THROUGH THE NIGHT. HE WAS OBSERVED RESTLESS, AND HYPERVERBAL IN HIS ROOM THROUGHOUT THE NIGHT. REFUSED ATIVAN 1MG PO PRN. HE IS REFUSING SYNTHROID QAM. GIVEN SNACKS THIS MORNING. HE WILL CONTINUE ON 1:1 SUPERVISION FOR AWOL PRECAUTION.
[2018-05-14] MEDS: LEVOTHYROXINE SODIUM 50 MCG TABLET PO SCH (07:00)
[2018-05-14 08:00] VITALS: BP 90/62
[2018-05-14] MEDS: VALPROIC ACID 250 MG/5 ML LIQUID UDC PO SCH ×3 (08:05→17:18)
[2018-05-14] MEDS: METOPROLOL TARTRATE 25 MG TABLET PO SCH ×2 (08:05→21:00)
[2018-05-14] MEDS: APIXABAN 5 MG TABLET PO SCH ×2 (08:06→17:18)
[2018-05-14] MEDS: BENZTROPINE MESYLATE 1 MG TABLET PO SCH ×3 (08:07→17:18)
[2018-05-14] MEDS: risperiDONE-M 0.5 MG TAB.RAPDIS PO SCH ×2 (08:21→17:00)
[2018-05-14] MEDS: ASPIRIN EC 81 MG TABLET.DR PO SCH (08:31)
[2018-05-14] MEDS: DOCUSATE SODIUM 100 MG CAPSULE PO SCH (08:31)
[2018-05-14] MEDS: MULTIVITAMINS,THERAPEUTIC TABLET PO SCH (08:31)
[2018-05-14] MEDS: LORAZEPAM 1 MG TABLET PO PRN (12:28)
--- NOTE | 2018-05-14 14:11 | NUR ---
Gps/Premix Concrete Batcher- Unable to do CT of the head, patient will not stay still, restless figity, will not stay still, ativam 1 mg given po with very minimal results.Remains on 1:1 nursing supervision for safety.
[2018-05-14 16:00] VITALS: BP 132/75
--- NOTE | 2018-05-14 18:25 | NUR ---
Gps/Contact Lens Manufacturer- Called Dr Garsia clarified orders of invega sustena 117 mg. as noted entered in the misc. orders , needed to be administered tonight as ordered.Called [facility] Pharmacist, was informed of the order, will check order per [facility] Pharm. , informed medication Invega Sustena in the pharmacy as pt. own med. brought in by Dr Garsia , needed to follow up again with [facility].
--- NOTE | 2018-05-14 19:07 | NUR ---
Gps/Real Estate Sales Associate- Called Dr Garsia clarified again previous order of invega sustena, needed medication consent, orders received, ok. to give invega tomorrow, and just give risperdal M 2 mg po. tonight.
[2018-05-14] MEDS ORDERED: risperiDONE-M 0.5 MG TAB.RAPDIS PO ONE (19:15)
[2018-05-14 20:00] VITALS: BP 90/58
[2018-05-14] MEDS ORDERED: PALIPERIDONE IM ONE (20:00)
[2018-05-14] MEDS: ATORVASTATIN 20 MG TABLET PO SCH (21:00)
[2018-05-15] MEDS: LEVOTHYROXINE SODIUM 50 MCG TABLET PO SCH (06:32)
[2018-05-15 07:30] VITALS: BP 113/74
[2018-05-15] MEDS ORDERED: risperiDONE-M 0.5 MG TAB.RAPDIS PO PRN (09:00)
[2018-05-15] MEDS ORDERED: risperiDONE-M 0.5 MG TAB.RAPDIS PO SCH (09:00)
[2018-05-15] MEDS: DOCUSATE SODIUM 100 MG CAPSULE PO SCH (09:00)
[2018-05-15] MEDS: APIXABAN 5 MG TABLET PO SCH ×2 (10:03→18:01)
[2018-05-15] MEDS: ASPIRIN EC 81 MG TABLET.DR PO SCH (10:03)
[2018-05-15] MEDS: METOPROLOL TARTRATE 25 MG TABLET PO SCH ×2 (10:04→20:03)
[2018-05-15] MEDS: BENZTROPINE MESYLATE 1 MG TABLET PO SCH ×2 (10:04→17:57)
[2018-05-15] MEDS: MULTIVITAMINS,THERAPEUTIC TABLET PO SCH (10:05)
[2018-05-15] MEDS ORDERED: PALIPERIDONE IM ONE (10:45)
--- NOTE | 2018-05-15 14:52 | NUR ---
Gps/Filler Blender- Sitter for patient was dc'd per Dr Garsia, patient appeared to be calmer, quiet,following simple directions,,at times uses gestures, speaks Yakut.Monitored closely for safety, motored needs. Ambulates around pacing , steady gait.
[2018-05-15 15:00] VITALS: BP 102/59
--- NOTE | 2018-05-15 18:00 | NUR ---
Gps/Computer Graphics Illustrator- Patient extremely loud, difficulty redirecting , pacing back and fort the hallway, going to other patient's room. Routine pm med. was administered po.lots of prompting and encouragement to initiate tasks.Continue to monitor patient closely for safety.
[2018-05-15] MEDS: LORAZEPAM 1 MG TABLET PO PRN (18:38)
[2018-05-15 20:00] VITALS: BP 119/69
[2018-05-15] MEDS: ATORVASTATIN 20 MG TABLET PO SCH (20:03)
[2018-05-16] MEDS: TEMAZEPAM 15 MG CAPSULE PO PRN (01:48)
[2018-05-16] MEDS: LEVOTHYROXINE SODIUM 50 MCG TABLET PO SCH (06:03)
--- NOTE | 2018-05-16 06:14 | NUR ---
GPS: PATIENT SLEPT FOR APPROX 4:30 HRS THROUGH THE NIGHT AFTER SLEEPING MEDS GIVEN. PATIENT WAS OBSERVED PACING IN [address]. COMPLIANT WITH AM SYNTHROID . GIVEN SNACKS THIS MORNING. HE WILL CONTINUE ON 1:1 SUPERVISION FOR AWOL PRECAUTION. CONTINUE PLAN OF CARE.
[2018-05-16 07:30] VITALS: BP 120/68
[2018-05-16] MEDS: BENZTROPINE MESYLATE 1 MG TABLET PO SCH ×2 (08:34→16:58)
[2018-05-16] MEDS: ASPIRIN EC 81 MG TABLET.DR PO SCH (08:34)
[2018-05-16] MEDS: METOPROLOL TARTRATE 25 MG TABLET PO SCH ×2 (08:35→20:16)
[2018-05-16] MEDS: APIXABAN 5 MG TABLET PO SCH ×2 (08:36→16:58)
[2018-05-16] MEDS: DOCUSATE SODIUM 100 MG CAPSULE PO SCH (09:00)
[2018-05-16] MEDS: MULTIVITAMINS,THERAPEUTIC TABLET PO SCH (09:00)
[2018-05-16] MEDS: LORAZEPAM 1 MG TABLET PO PRN ×3 (09:22→20:15)
[2018-05-16] MEDS: risperiDONE 1 MG/ML UDC PO SCH ×2 (11:33→16:58)
[2018-05-16 16:36] VITALS: BP 120/65
--- NOTE | 2018-05-16 18:15 | NUR ---
GPS/RN- Patient frequently anxious and restless, unable to be redirected this evening frequently pacing, instrusive in rooms with patients, pushing doors, undressing. difficult to redirect poor insight and judgement. Dr Garsia notified orders received and repeated to . Zyprexa Zydis, 5mg PO BID in addition to Risperdal. first dose now
[2018-05-16] MEDS: OLANZAPINE ZYDIS 5 MG TAB.RAPDIS PO SCH (18:57)
[2018-05-16] MEDS: ATORVASTATIN 20 MG TABLET PO SCH (20:15)
[2018-05-16 20:50] VITALS: BP 115/59
[2018-05-17] MEDS: TEMAZEPAM 15 MG CAPSULE PO PRN (00:39)
--- NOTE | 2018-05-17 06:12 | NUR ---
GPS: PATIENT SLEPT FOR APPROX 5 HRS THROUGH THE NIGHT AFTER SLEEPING MEDS GIVEN. PATIENT WAS OBSERVED PACING IN [address]. COMPLIANT WITH AM SYNTHROID . GIVEN SNACKS THIS MORNING. HE WILL CONTINUE ON 1:1 SUPERVISION FOR MIKI KRAUSE. CONTINUE PLAN OF CARE. Addendum: 05/17/18 at 0617 by BRAYAN FAGAN LVN SLEPT 5:30 HRS INSTEAD OF 5 HRS.
[2018-05-17] MEDS: LEVOTHYROXINE SODIUM 50 MCG TABLET PO SCH (06:15)
[2018-05-17 07:30] VITALS: BP 98/61
[2018-05-17] MEDS: APIXABAN 5 MG TABLET PO SCH ×3 (08:15→16:34)
[2018-05-17] MEDS: METOPROLOL TARTRATE 25 MG TABLET PO SCH ×2 (08:15→20:37)
[2018-05-17] MEDS: DOCUSATE SODIUM 100 MG CAPSULE PO SCH (08:15)
[2018-05-17] MEDS: BENZTROPINE MESYLATE 1 MG TABLET PO SCH ×3 (08:15→16:34)
[2018-05-17] MEDS: ASPIRIN EC 81 MG TABLET.DR PO SCH (08:15)
[2018-05-17] MEDS: OLANZAPINE ZYDIS 5 MG TAB.RAPDIS PO SCH ×3 (08:16→16:35)
[2018-05-17] MEDS: MULTIVITAMINS,THERAPEUTIC TABLET PO SCH (08:16)
[2018-05-17] MEDS: risperiDONE 1 MG/ML UDC PO SCH ×3 (08:16→16:34)
[2018-05-17] MEDS: OLANZAPINE 10 MG VIAL IM PRN ×2 (08:57→19:20)
--- NOTE | 2018-05-17 08:58 | NUR ---
GPS/RN/- Patient continues confused , restless anxious, frequently pacing up and down unit, in and out of rooms, wondering, frequent redirection. pushing on exit doors. remains with sitter at this time. patient requires more than one staff assist for redirection at times, more resistive. refusing AM meds at this time. Zyprexa IM given per RIESE orders.
--- NOTE | 2018-05-17 09:05 | NUR ---
GPS/RN- Contacted Dr Garsia, Regarding RIESE orders, Patient has Zyprexa 2.5mg IM order PRN for each refusal of PRN Risperdal. clarified order. patient to receive Zyprexa 5mg IM PRN for each refusal of Zyprexa 5mg PO BID. read back clarification for orders.
[2018-05-17] MEDS: OXCARBAZEPINE 150 MG TABLET PO SCH ×3 (10:45→16:34)
[2018-05-17 15:52] VITALS: BP 114/59
[2018-05-17 20:35] VITALS: BP 117/57
[2018-05-17] MEDS: ATORVASTATIN 20 MG TABLET PO SCH (20:37)
[2018-05-17] MEDS: LORAZEPAM 1 MG TABLET PO PRN (20:41)
--- NOTE | 2018-05-17 23:02 | NUR ---
gps: patient pushing staff ,wondering in hallway. banging on bedside table. ativan 1 mg po given for agitation.
[2018-05-18] MEDS: LEVOTHYROXINE SODIUM 50 MCG TABLET PO SCH (06:01)
--- NOTE | 2018-05-18 06:09 | NUR ---
GPS: PATIENT SLEPT FOR APPROX 7:45 HRS THROUGH THE NIGHT. PATIENT WAS OBSERVED PACING IN [address]. COMPLIANT WITH AM SYNTHROID . GIVEN SNACKS THIS MORNING. HE WILL CONTINUE ON 1:1 SUPERVISION FOR AWOL PRECAUTION. CONTINUE PLAN OF CARE.
[2018-05-18 07:25] LABS: BASOPHILS % (AUTO) 0.6 % (0.0-2.0); EOSINOPHILS # (AUTO) 0.2 K/uL (0.0-0.7); EOSINOPHILS % (AUTO) 2.3 % (0.0-7.0); HEMATOCRIT 35.6 % (36.7-47.1); LYMPHOCYTES # (AUTO) 1.6 K/uL (20.0-40.0); LYMPHOCYTES % (AUTO) 21.1 % (20.5-51.5); MEAN CORPUSCULAR HGB CONC 34 g/dL (32.5-36.3); MEAN CORPUSCULAR VOLUME 94.9 fL (73.0-96.2); MONOCYTES # (AUTO) 0.8 K/uL (2.0-10.0); MONOCYTES % (AUTO) 10.7 % (0.0-11.0); NEUTROPHILS # (AUTO) 4.9 K/uL (1.8-8.9); NEUTROPHILS % (AUTO) 65.3 % (38.5-71.5); PLATELET COUNT (AUTO) 189 K/uL (152-348); RED BLOOD CELL COUNT(AUTO) 3.76 MIL/uL (4.06-5.63); WHITE BLOOD COUNT (AUTO) 7.5 K/uL (3.6-10.2)
[2018-05-18 07:30] VITALS: BP 92/63
[2018-05-18 07:37] LABS: CARBON DIOXIDE 31 mmol/L (21-32); CHLORIDE 111 mmol/L (98-107); CREATININE 1.3 mg/dL (0.6-1.3); GLUCOSE 87 mg/dL (74-106); MAGNESIUM 2.1 mg/dL (1.8-2.4); POTASSIUM 3.9 mmol/L (3.5-5.1); UREA NITROGEN, BLOOD 35 mg/dL (7-18)
[2018-05-18] MEDS: APIXABAN 5 MG TABLET PO SCH ×2 (09:00→16:26)
[2018-05-18] MEDS: OXCARBAZEPINE 150 MG TABLET PO SCH (09:00)
[2018-05-18] MEDS: BENZTROPINE MESYLATE 1 MG TABLET PO SCH ×2 (09:00→16:26)
[2018-05-18] MEDS: MULTIVITAMINS,THERAPEUTIC TABLET PO SCH (09:00)
[2018-05-18] MEDS: risperiDONE 1 MG/ML UDC PO SCH ×4 (09:00→16:26)
[2018-05-18] MEDS: OLANZAPINE ZYDIS 5 MG TAB.RAPDIS PO SCH ×3 (09:00→16:26)
[2018-05-18] MEDS: METOPROLOL TARTRATE 25 MG TABLET PO SCH ×2 (09:00→20:36)
[2018-05-18] MEDS: ASPIRIN EC 81 MG TABLET.DR PO SCH (09:00)
[2018-05-18] MEDS: DOCUSATE SODIUM 100 MG CAPSULE PO SCH (09:00)
[2018-05-18] MEDS: OLANZAPINE 10 MG VIAL IM PRN (09:58)
[2018-05-18 12:33] LABS: *BILIRUBIN,URIN NEGATIVE (NEGATIVE); *BLOOD, URINE NEGATIVE (NEGATIVE); *CLARITY,URINE CLEAR (CLEAR); *COLOR,URINE YELLOW (YELLOW); *KETONES,URINE NEGATIVE (NEGATIVE); *PROTEIN,URINE NEGATIVE (NEGATIVE); *UROBILINOGEN,URINE 0.2 E.U./dl (NORMAL); LEUKOCYTE ESTERASE ,URINE NEGATIVE (NEGATIVE); NITRITE, URINE NEGATIVE (NEGATIVE); UGLUCOSE NEGATIVE (NEGATIVE)
--- NOTE | 2018-05-18 16:07 | NUR ---
Discharge Planning Note: JODEE faxed inquiries to the following Locked SNFs for placement options. [facility] (ph [phone]; fax [phone]) Attn: Jimi. Patient accepted [facility] ( ; ) Attn: Letty. Patient accepted [facility] (ph [phone]; fax [phone]) Attn: Roopa. [facility] (ph [phone]; ) Attn: Shahbaz. Patient not accepted [facility] (ph [phone]; fax [phone]) Attn: Preston. Patient not accepted [facility] (ph [phone]; fax [phone]) Attn: Brittni. Response pending JODEE spoke with designated family member, Rolanda ([phone]) to discuss placement for the patient. Informed family of accepting facilities and provided contact information to the family. Per Rolanda, she will speak with family and have an decision for discharge planning in the morning. JODEE will follow-up.
[2018-05-18 17:30] VITALS: BP 104/53
[2018-05-18 19:30] VITALS: BP 122/67
[2018-05-18] MEDS: ATORVASTATIN 20 MG TABLET PO SCH (20:36)
[2018-05-18] MEDS: TEMAZEPAM 15 MG CAPSULE PO PRN (20:44)
--- NOTE | 2018-05-19 06:42 | NUR ---
Refused meds during the shift, running away from it, mumbling incomprehensible words. Would get agitated when prodded. Slept well during the shift, sitter at bedside. Frequent checks done.
[2018-05-19] MEDS: LEVOTHYROXINE SODIUM 50 MCG TABLET PO SCH (06:46)
--- NOTE | 2018-05-19 06:55 | NUR ---
Wandering along the hallways, mumbling, sometimes screaming. Refusing meds and nursing care, getting agitated. Requires consistent monitoring for unpredictable and uncooperative behavior.
[2018-05-19 07:30] VITALS: BP 92/61
[2018-05-19 08:10] VITALS: BP 92/61
[2018-05-19] MEDS: APIXABAN 5 MG TABLET PO SCH (08:10)
[2018-05-19] MEDS: OLANZAPINE ZYDIS 5 MG TAB.RAPDIS PO SCH (08:10)
[2018-05-19] MEDS: DOCUSATE SODIUM 100 MG CAPSULE PO SCH (08:10)
[2018-05-19] MEDS: ASPIRIN EC 81 MG TABLET.DR PO SCH (08:10)
[2018-05-19] MEDS: METOPROLOL TARTRATE 25 MG TABLET PO SCH (08:10)
[2018-05-19] MEDS: risperiDONE 1 MG/ML UDC PO SCH ×2 (08:10→12:01)
[2018-05-19] MEDS: BENZTROPINE MESYLATE 1 MG TABLET PO SCH (08:10)
[2018-05-19] MEDS: MULTIVITAMINS,THERAPEUTIC TABLET PO SCH (08:11)
--- NOTE | 2018-05-19 08:39 | NUR ---
Discharge Note: Patient will be discharged to [facility] [[address] [place] [address]; ] via ambulance. Please arrange an ambulance for this patient. Spoke with Jimi at the facility who states they are ready to accept the patient today. Spoke with patient's , Kaylyn ([phone]) and friend, Rolanda ([phone]) who are aware and agreeable with discharge plans. Patient is alert and oriented to self only. Patient will follow-up at the facility with Dr. Lopez (Measurement Department Chief Clerk) and Dr. Garsia (Psychiatrist).
--- NOTE | 2018-05-19 09:34 | NUR ---
GPS: Nursing Notes: Refusing For Pictures To Be taken: Patient refusing for pictures to be taken, walking away from staff, confused, disorganized, impaired judgment, continue with discharge process, continue with treatment plan.
--- NOTE | 2018-05-19 12:30 | NUR ---
GPS: Nursing Notes: Discharge Notes: Patient is awake and responding to his name, confused, disorganized, impaired judgment, wanders around the unit, denies any SI/HI, denies any AH/VH, denies any pain or discomfort, denies any SOB, discharge to [facility] [place] [address] [place] [address] , report given to Louie RN refuse collector supervisor at the facility, transported to facility via ambulance. wafer production lead worker spoke with patient's , Kaylyn ([phone]) and friend, Rolanda ([phone]) who are aware and agreeable with discharge plans. Patient is alert and oriented to self only. Patient will follow-up at the facility with Dr. Lopez (Overlock Waistline Joiner) and Dr. Garsia (Psychiatrist) for aftercare at the facility.
== END 2018-05-19 12:30 | DRG 885 ==
LOC: ER 21:34 → GPS 22:49
PROVIDERS: ADMIT Psychiatry & Neurology Psychosomatic Medicine; ATTEND Registered Nurse
DX: F25.0 Schizoaffective disorder, bipolar type (principal); F02.81 Dementia in other diseases classified elsewhere, unspecified severity, with behavioral disturbance; N17.9 Acute kidney failure, unspecified; I11.0 Hypertensive heart disease with heart failure; I50.33 Acute on chronic diastolic (congestive) heart failure; Z79.82 Long term (current) use of aspirin; Z79.899 Other long term (current) drug therapy; E03.9 Hypothyroidism, unspecified; Z79.01 Long term (current) use of anticoagulants; E78.5 Hyperlipidemia, unspecified; T50.905A Adverse effect of unspecified drugs, medicaments and biological substances, initial encounter; Y92.129 Unspecified place in nursing home as the place of occurrence of the external cause; Z72.0 Tobacco use; G30.9 Alzheimer's disease, unspecified; I45.81 Long QT syndrome; Z86.73 Personal history of transient ischemic attack (TIA), and cerebral infarction without residual deficits; Z95.0 Presence of cardiac pacemaker; Z91.14 Patient's other noncompliance with medication regimen; J44.9 Chronic obstructive pulmonary disease, unspecified; K59.00 Constipation, unspecified; S93.402A Sprain of unspecified ligament of left ankle, initial encounter; X58.XXXA Exposure to other specified factors, initial encounter; Y92.89 Other specified places as the place of occurrence of the external cause; I48.91 Unspecified atrial fibrillation
CPT/HCPCS: 36415; 70030-TC; 71045; 73600; 80164; 80307; 83735; 84100; 84156; 84300; 85025; 93005; 93307; A4663; G0480; G0480-TC; J0515; J0696; J1200; J1630; J2060; J2358; J3490; J7030